=== PATIENT | male | born 1965 | race Caucasian/White ===

== ENCOUNTER 2021-06-04 14:51 | Emergency (ER) | payer SELFPAY ==
[~2021-06-04] VITALS: Ht 167.6 cm; Wt 45.4 kg
[2021-06-04] MEDS ORDERED: IV NS 0.9% 1,000 ML BAG IV ONE (15:00)
--- NOTE | 2021-06-04 15:00 | NUR ---
TO ER BED 9, BIBRA60 FOR DIZZY/WEAKNESS. DC'D FROM [facility] TODAY, SENT TO NURSING HOME. NURSING HOME'S FULL CALLED 911 FOR DIZZINESS PER EMS. HX OF AIDS, AAOX3, BREATHING EVEN AND NON LABORED, CONNECTED TO MONITOR
--- NOTE | 2021-06-04 15:27 | NUR ---
CALLED [facility] [employer] FOR CONSULT
[2021-06-04] MEDS ORDERED: METOCLOPRAMIDE HCL 10 MG/2 ML VIAL IV ONE (15:30)
[2021-06-04] MEDS ORDERED: diphenhydrAMINE HCL 50 MG/ML VIAL IV ONE (15:30)
[2021-06-04] MEDS ORDERED: KETOROLAC TROMETHAMINE INJ 30 MG/ML VIAL IV ONE (15:30)
[2021-06-04 15:35] LABS: BASOPHILS % (AUTO) 0.4 % (0.0-2.0); HEMATOCRIT 30 % (39-51); HEMOGLOBIN 9.8 g/dL (13.5-17.5); LYMPHOCYTES # (AUTO) 0.6 K/uL (0.8-4.8); LYMPHOCYTES % (AUTO) 25.3 % (20.0-44.0); MEAN CORPUSCULAR HGB CONC 33 g/dl (31.0-36.0); MEAN CORPUSCULAR VOLUME 99 fL (80-96); MONOCYTES # (AUTO) 0.3 K/uL (0.1-1.30); MONOCYTES % (AUTO) 15.1 % (2.0-12.0); NEUTROPHILS # (AUTO) 1.4 K/uL (1.8-8.9); NEUTROPHILS % (AUTO) 59.2 % (43.0-81.0); PLATELET COUNT (AUTO) 273 K/uL (150-450); RED BLOOD CELL COUNT(AUTO) 3.06 MIL/uL (4.5-6.0); WHITE BLOOD COUNT (AUTO) 2.3 K/uL (4.3-11.0)
[2021-06-04] MEDS ORDERED: METOCLOPRAMIDE HCL 10 MG/2 ML VIAL ONE (15:37)
[2021-06-04] MEDS ORDERED: diphenhydrAMINE HCL 50 MG/ML VIAL ONE (15:37)
[2021-06-04] MEDS ORDERED: KETOROLAC TROMETHAMINE 15 MG/ML VIAL ONE (15:37)
--- NOTE | 2021-06-04 16:33 | NUR ---
"SS Note: SS consult for placement. Pt. Is a 56-year-old male who demonstrates adequate insight to the reason for hospitalization. Per pt., he presented himself to hospital for dizziness. Pt. was oriented x4, alert, and cooperative. During interview, pt. was capable of following directions, made appropriate eye-contact, and appeared unkempt. Pt.'s speech was at a normal rate and pt.'s mood was elevated. Pt. reported no hx of mental health, substance abuse, suicidal ideation, or homicidal ideation. Pt. denies auditory hallucinations, visual hallucinations, paranoia, or delusions. SW explored pt.'s SW explored pt.'s living situation, per pt., he is homeless. He was residing at [facility] [[phone]] but was previously staying at a penitentiary [Pt. could not provide name]. Pt. has no family or support out here. Plan: SW provided penitentiary resources and directions to [facility] [[address] [facility] [address]]. Pt. has not been medically cleared. Upon discharge, per pt., he will go to a penitentiary if pt. does not get admitted. Resources Provided: Winter Shelters: SPA 2 | [facility]: [facility] Address: Confidential (call for location ) Population Served: Coed # of Beds: 57 SPA 4 | [facility] Provider: Home at Last Address: [address] [address] # of Beds: 49 Population Served: Coed SPA 6 | [facility] Provider: Home at Last Address: [address] [id number] # of Beds: 49 Population Served: [place] [facility] Provider: Gabriel Fields [place] Address: [address] [facility] [address] # of Beds: 20 Population Served: Women ELIF Facility Provider: Home at Last Address: [address] [facility] [address] # of Beds: 30 Population Served: Women SPA 8 | [facility] Provider: [facility] Address: [address] [facility] [address] # of Beds: 65 Population Served: Corinad Year-round shelters: [place] [address] [place] [address] ; [place] [facility] [place] [address] [place] [address]; [place] [facility] [address] [facility] [address] Winter Shelters: Jos Alexandra Hubbard Provider: [facility] [place] Address: [address], [address] # of Beds: 47 Population Served: Coed [facility] 6 | [facility] Jacob Hubbard Provider: Home at Last Address: [address] [place] [address], [address] # of Beds: 66 Population Served: Ector Impulsonic Hubbard Provider: First [facility] Serve Address: [address] [facility], [address] # of Beds: 56 Population Served: Corinad [place] Provider: /[facility] Address: [address] [facility], [address] # of Beds: 49 Population Served: Coed SPA 8 | [facility] Provider: First to Serve Address: [address] [facility], [address] # of Beds: 37 Population Served: Corinad Hygiene: [facility]: [address] [place] ; [facility] [address] [facility] ; [facility] [address] . Food Resources: [place] [facility] at [facility]- [address] [place]; Meet Each Need with Dignity ([facility]) [address] [facility]; [facility] [address] [facility]; [facility] [address] [facility] [place]. Mental Health resources provided: [facility] [address] [place], [place] [address] ; [facility] [address] [facility] [address], [place] [address] ; [facility] [address] [facility] [place], [place] [id number] ; [facility] [address] [place], [place] [address] Healthcare Clinics: [facility] [address] [facility], [address] [place]. [place] ; [facility] [address] [facility] [address] [place] [address]; [facility] [address] [facility] [address] [facility] [place] [phone]) [phone] Counseling--Outpatient [facility] [address] [facility], [place] [address] (Specializes in in-depth psychotherapy for emotional distress: anxiety, depression, interpersonal conflicts, life transitions, childhood abuse) [facility] [address] [place] [address] (Assist with solving problem marital difficulties, separation & divorce, aging parents, & grief, chronic & terminal illness) [facility] [address] [place] [address] (Deal with loss & grief, anxiety, marital difficulties) Homebound/Mental Health Services [address] [facility], [address] [place], [place] [id number] (Provide in-home mental services to people who are incapable of leaving their homes) [facility] Elderly Senior Service/Resource Center [address] [place] [address] [facility] [address] [facility] [place] [address] PSYCHIATRIC OUTPATIENT SERVICES [facility] Partial Hospitalization and Intensive Outpatient Program (Managed Care and [place] Only)[address] [facility] [phone] [facility] Partial Hospitalization and Outpatient [address] [place], [place] [phone] [facility] Health Vilas [address] [facility] [address] [place], [place] [phone] [facility] Partial Hospitalization and Outpatient Stfqvoh[address]75 Emelita [facility] Kye, [phone] Substance Abuse resources provided included: [facility] Substance Abuse Self-Helpline ([facility]) ; CRI -HELP [address] [facility]. [place] [address] ; [facility] [address] [facility] [address] ; [facility] [address] [facility]dHealthAll[facility] [address] ; [place] [address] [facility] [address] ; [facility] [address] [facility] [address] ; [facility] [address] [facility] [phone] ; [facility] Substance Abuse Helpline([facility] ; [facility] ; [facility] [place]; [facility] [place]; Cri[facility]Help [place]; [facility] Ángel Okeefekeeley; [facility]; [place] Nasir; [facility] Syl; [facility], [facility]. Og Dorsey; Alcoholics Anonymous -[facility]V; Rohit ; Marijuana Anonymous -SFV; Narcotics Anonymous [email or web address];"
[2021-06-04 16:34] LABS: ALANINE AMINOTRANSFERASE 25 U/L (12-78); ALKALINE PHOSPHATASE 123 U/L (46-116); ASPARTATE AMINOTRANSFERASE 15 U/L (15-37); BILIRUBIN,DIRECT 0.1 mg/dL (0.0-0.2); BILIRUBIN,TOTAL 0.3 mg/dL (0.2-1.0); CALCIUM, SERUM 8.1 mg/dL (8.5-10.1); CARBON DIOXIDE 14 mmol/L (21-32); CHLORIDE 111 mmol/L (98-107); CREATININE 0.8 mg/dL (0.6-1.3); GLUCOSE 97 mg/dL (74-106); POTASSIUM 3.3 mmol/L (3.5-5.1); SODIUM SERUM 137 mmol/L (136-145); UREA NITROGEN, BLOOD 4 mg/dL (7-18)
[2021-06-04 16:44] LABS: TOTAL PROTEIN, SERUM 5.4 g/dL (6.4-8.2)
[2021-06-04 17:32] LABS: LYMPHOCYTES % (MANUAL) 26 % (16-48); MONOCYTES % (MANUAL) 14 % (0-11.0); NEUTROPHILS % (MANUAL) 60 (42-76)
[2021-06-04] MEDS ORDERED: IBUP-1955 PO (18:19)
[2021-06-04] MEDS ORDERED: POTA10CA43 PO (18:19)
[2021-06-04 19:20] VITALS: BP 106/70
--- NOTE | 2021-06-04 19:20 | NUR ---
IV removed. Catheter intact and site benign. Pressure and 4x4 applied to site. No bleeding noted.Patient discharged to home in stable condition. Written and verbal after care instructions given. Patient verbalizes understanding of instruction.
== END 2021-06-04 19:20 | disposition home or self-care (01) ==
LOC: ER 14:55
DX: R51.9 Headache, unspecified (principal); U09.9 Post COVID-19 condition, unspecified; R53.83 Other fatigue
CPT/HCPCS: 36415; 71045; 80048; 80076; 84484; 85007; 85025; 85730; 93005; 96361; 96374; 96375; 99285; J1200; J1885; J2765; J7030